=== PATIENT | female | born 1985 | race Caucasian/White ===

== ENCOUNTER 2019-06-01 15:34 | Emergency (ER) | payer OTHER ==
[~2019-06-01] VITALS: Ht 165.1 cm; Wt 104.3 kg
[2019-06-01 18:10] VITALS: BP 118/70
== END 2019-06-01 18:15 | disposition home or self-care (01) ==
LOC: ER 15:34
DX: J03.90 Acute tonsillitis, unspecified (principal); Z90.49 Acquired absence of other specified parts of digestive tract; Z98.890 Other specified postprocedural states; Z91.040 Latex allergy status

== ENCOUNTER 2020-07-21 16:57 | Emergency (ER) | payer OTHER ==
[~2020-07-21] VITALS: Ht 165.1 cm; Wt 104.3 kg
[2020-07-21 17:28] LABS: URINE BILIRUBIN NEGATIVE (Negative); URINE BLOOD TRACE (Negative); URINE CLARITY CLEAR; URINE COLOR YELLOW; URINE GLUCOSE-RANDOM* NEGATIVE (Negative); URINE KETONES NEGATIVE (Negative); URINE LEUKOCYTES-REFLEX NEGATIVE (Negative); URINE NITRITE-REFLEX NEGATIVE (Negative); URINE PROTEIN (DIPSTICK) NEGATIVE (Negative); URINE SPECIFIC GRAVITY >= 1.030 (1.005-1.035)
[2020-07-21 17:51] LABS: ABSOLUTE NEUTROPHILS 7.7 thou/uL (1.4-8.2); BASOPHILS 0.4 % (0.0-2.0); EOSINOPHILS 1.7 % (0.0-3.0); HEMATOCRIT 41.6 % (37.0-47.0); HEMOGLOBIN 14.1 gm/dL (12.0-15.0); LYMPHOCYTES 19.7 % (24.0-44.0); MCH 31.6 pg (26.0-34.0); MCHC 33.9 g/dL (28.0-37.0); MCV 93.4 fL (80.0-100.0); MONOCYTES 7.2 % (1.0-8.0); PLATELET COUNT 298 thou/uL (150-400); RBC 4.45 mil/uL (4.20-5.00); RDW 12.9 % (10.5-14.5); WBC 10.9 thou/uL (4.0-11.0)
[2020-07-21 18:04] LABS: ANION GAP 8 mmol/L (7-16); BUN 19 mg/dL (7-18); CALCIUM 9.2 mg/dL (8.5-10.1); CHLORIDE 101 mmol/L (98-107); CO2 27 mmol/L (21-32); GLUCOSE 102 mg/dL (74-106); POTASSIUM 4.1 mmol/L (3.5-5.1); SODIUM 136 mmol/L (136-145)
[2020-07-21 18:12] LABS: ALBUMIN 3.8 g/dL (3.4-5.0); DIRECT BILIRUBIN < 0.1 mg/dL (<0.1-0.2); LIPASE 192 U/L (73-393); SGOT 22 U/L (15-37); SGPT 41 U/L (14-59); TOTAL BILIRUBIN 0.3 mg/dL (0.2-1.0); TOTAL PROTEIN 7.8 g/dL (6.4-8.2)
[2020-07-21] MEDS ORDERED: BENTYL 10 MG CA10 M1 PO (20:00)
[2020-07-21] MEDS ORDERED: CARAFATE 1 GM TA1 G1 PO (20:00)
[2020-07-21] MEDS ORDERED: ONDANSETRON HCL4 M2 PO (20:00)
[2020-07-21 20:14] VITALS: BP 117/69
== END 2020-07-21 20:15 | disposition short-term general hospital (02) ==
LOC: ER 16:57
PROVIDERS: Nurse Practitioner
DX: S39.011A Strain of muscle, fascia and tendon of abdomen, initial encounter (principal); R11.2 Nausea with vomiting, unspecified; Z90.49 Acquired absence of other specified parts of digestive tract; Z91.040 Latex allergy status; X58.XXXA Exposure to other specified factors, initial encounter; Y93.89 Activity, other specified; Y92.89 Other specified places as the place of occurrence of the external cause; Y99.8 Other external cause status